=== PATIENT | male | born 1970 | race Caucasian/White ===

== ENCOUNTER 2017-11-19 13:48 | Emergency (ER) | payer BC, OTHER ==
[2017-11-19] MEDS ORDERED: KETOROLAC TROMETHAMINE INJ 30 MG/ML VIAL IM ONE (14:07)
[2017-11-19] MEDS ORDERED: HYDROcodone 10MG/APAP 325MG 1 EA TAB PO ONE (14:07)
[2017-11-19 14:14] VITALS: TEMP 97.4
--- NOTE | 2017-11-19 14:30 | RAD ---
One view abdomen. Indication: left inguinal and flank pain 6 hrs Comparison: None. Impression: Scattered calcified phleboliths within the pelvis. Bowel gas pattern nonspecific. No abnormal calcifications. No acute osseous abnormality. Electronically signed by: Gus Velasquez MD 11/19/2017 2:28 PM CDT
[2017-11-19] MEDS ORDERED: TAMSULOSIN 0.4 MG CAP PO ONE (14:46)
[2017-11-19] MEDS ORDERED: SODIUM CHLORIDE 0.9% 1000ML 1,000 ML IVS ONE (14:46)
[2017-11-19 15:25] VITALS: O2SAT 99
--- NOTE | 2017-11-19 15:36 | ED.PDOC ---
History of Present Illness - General Chief Complaint: Abdominal Pain Stated Complaint: Abdominal and low back discomfort Time Seen by Provider: 11/19/17 14:01 Source: patient Exam Limitations: no limitations - History of Present Illness Initial Comments: the patient is a 47-year-old male presenting to the emergency room secondary to left inguinal and testicular pain that started to radiate up towards his left flank. Symptoms started about 8 AM this morning fairly abruptly. No la hematuria and no dysuria. He has had mild frequency. No fever. No history of any kidney stones. Pain does come in waves and at times is very severe. It has caused him some nausea but no vomiting. No syncope but it has made him near syncopal. Timing/Duration: 4-6 hours Severity: moderate Improving Factors: nothing Worsening Factors: nothing Associated Symptoms: nausea/vomiting Allergies/Adverse Reactions: Allergies NO KNOWN ALLERGY Allergy (Verified 11/19/17 14:01) Home Medications: Ambulatory Orders Qvlmtgikyabbd-Pajb-Skeblhuwwi [Fioricet] 1 ea PO Q8H PRN #21 tab 11/19/17 Tamsulosin HCl [Flomax] 0.4 mg PO DAILY #7 cap 11/19/17 Review of Systems - Review of Systems Constitutional: States: no symptoms reported EENTM: States: no symptoms reported Respiratory: States: no symptoms reported Cardiology: States: no symptoms reported Gastrointestinal/Abdominal: States: no symptoms reported Genitourinary: States: see HPI Musculoskeletal: States: see HPI, back pain Skin: States: no symptoms reported Neurological: States: no symptoms reported Endocrine: States: no symptoms reported All other Systems: No Change from Baseline Past Medical History (General) - Patient Medical History Hx Stroke: No Hx Congestive Heart Failure: No Hx Diabetes: No Surgical History: appendectomy Family Medical History - Family History Mother Hx Family Hypertension: Yes Physical Exam - Physical Exam General Appearance: Alert Eye Exam: bilateral normal Ears, Nose, Throat: hearing grossly normal, normal ENT inspection, normal pharynx Neck: full range of motion, supple Respiratory: lungs clear, normal breath sounds, no respiratory distress, no accessory muscle use Cardiovascular/Chest: normal peripheral pulses, no edema, other - egular rate Peripheral Pulses: radial,right: 2+, radial,left: 2+, dorsalis pedis,right: 2+, dorsalis pedis,left: 2+ Gastrointestinal/Abdominal: non tender, soft Rectal Exam: deferred Back Exam: no CVA tenderness, no vertebral tenderness Extremity: normal range of motion, non-tender, normal inspection, no pedal edema , normal capillary refill Neurologic: local operator II-XII nml as tested, alert, normal mood/affect, oriented x 3 Skin Exam: normal color Comments: Vital Signs - 24 hr 11/19/17 11/19/17 14:02 15:03 Temperature 97.4 F L Pulse Rate [ 60 left brachial] Respiratory 18 16 Rate Blood Pressure 159/85 126/74 [left brachial] O2 Sat by Pulse 100 99 Oximetry Progress - Progress Progress: 11/19/17 15:36 the patient is a 47-year-old male presenting to the emergency room with what appears to be pain due to a left ureteral lithiasis, ased upon symptoms and hematuria. The patient has received some pain medications and IV fluids and is doing much better. KUB failed to show any stone along the path of the ureter, indicating that he has either passed into the ureter or is likely very small. The patient will be allowed to go home and will receive prescriptions for Flomax and Fioricet for as needed use. He needs to keep himself well-hydrated and move around a good bit. If he is still not passed a stone or still having significant discomfort in 3-5 days then he may need reevaluation. Renal function is within normal limits at this time. CT scan is not indicated at this time. No evidence of infection in the urine otherwise. he should follow up with his primary care doctor early next week for reevaluation. ER warnings were given. - Results/Orders Results/Orders: KUB shows no evidence of any stone along the lines of the ureter. He does have phleboliths. Laboratory Tests 11/19/17 11/19/17 11/19/17 14:00 15:00 15:00 WBC 6.3 RBC 4.59 L Hgb 14.1 Hct 40.8 L MCV 88.9 MCH 30.7 MCHC 34.5 RDW 12.8 Plt Count 277 MPV 8.1 Absolute Neuts (auto) 3.70 Absolute Lymphs (auto) 1.80 Absolute Monos (auto) 0.40 Absolute Eos (auto) 0.30 Absolute Basos (auto) 0.00 Neutrophils % 59.2 Lymphocytes % 28.7 Monocytes % 6.7 Eosinophils % 4.7 Basophils % 0.7 Sodium 140 Potassium 3.8 Chloride 106 Carbon Dioxide 28 Anion Gap 9.8 L BUN 16 Creatinine 1.23 BUN/Creatinine Ratio 13.0 Random Glucose 93 Serum Osmolality 280.3 Calcium 9.1 Total Bilirubin 0.7 AST 28 ALT 24 Alkaline Phosphatase 77 Serum Total Protein 7.2 Albumin 4.3 Globulin 2.9 Albumin/Globulin Ratio 1.5 Urine Color Dk yellow Urine Appearance Cloudy Urine pH 7.0 Ur Specific [place] 1.025 Urine Protein Trace Urine Glucose (UA) Negative Urine Ketones Negative Urine Blood Large H Urine Nitrite Negative Urine Bilirubin Negative Urine Urobilinogen 1.0 Ur Leukocyte Esterase Negative Urine RBC >50 H Urine WBC 0-1 Ur Epithelial Cells 0-1 Urine Bacteria 0 Departure - Departure Clinical Impression: Ureterolithiasis Disposition: Discharge to Home or Self Care Condition: Fair Departure Forms: ED Discharge - Pt. Copy, Patient Portal Self Enrollment Instructions: DI for Kidney Stones Diet: regular diet Activity: increase activity as tolerated Referrals: RAÚL ARGUETA IV, [facility] [Primary Care Provider] - 1-5 Days Prescriptions: Rkesyznbqrwbl-Jlzd-Aeigitimfg [Fioricet] 1 ea PO Q8H PRN #21 tab PRN Reason: Pain Tamsulosin HCl [Flomax] 0.4 mg PO DAILY #7 cap Home Medications: Ambulatory Orders Ohgcwzzlcdbcq-Rohr-Gpuacdtoel [Fioricet] 1 ea PO Q8H PRN #21 tab 11/19/17 Tamsulosin HCl [Flomax] 0.4 mg PO DAILY #7 cap 11/19/17 Additional Instructions: the patient is a 47-year-old male presenting to the emergency room with what appears to be pain due to a left ureteral lithiasis, ased upon symptoms and hematuria. The patient has received some pain medications and IV fluids and is doing much better. KUB failed to show any stone along the path of the ureter, indicating that he has either passed into the ureter or is likely very small. The patient will be allowed to go home and will receive prescriptions for Flomax and Fioricet for as needed use. He needs to keep himself well-hydrated and move around a good bit. If he is still not passed a stone or still having significant discomfort in 3-5 days then he may need reevaluation. Renal function is within normal limits at this time. CT scan is not indicated at this time. No evidence of infection in the urine otherwise. he should follow up with his primary care doctor early next week for reevaluation. ER warnings were given.
[2017-11-19 16:18] VITALS: BP 124/73
== END 2017-11-19 16:14 | disposition home or self-care (01) ==
LOC: ER 13:48
DX: N20.1 Calculus of ureter (principal); R11.0 Nausea
CPT/HCPCS: 36415; 74018; 80053; 81001; 85025; J1885; J7030

== ENCOUNTER 2017-11-24 04:28 | Emergency (ER) | payer BC ==
[2017-11-24 04:39] VITALS: TEMP 98.1; O2SAT 100
[2017-11-24] MEDS ORDERED: ONDANSETRON INJ 4 MG/2 ML VIAL IV ONE (04:45)
[2017-11-24] MEDS ORDERED: KETOROLAC TROMETHAMINE INJ 30 MG/ML VIAL IV ONE (04:46)
[2017-11-24] MEDS ORDERED: HYDROmorphone HCL INJ 2 MG/ML VIAL IV ONE ×3 (04:46→06:22)
--- NOTE | 2017-11-24 05:03 | ED.PDOC ---
History of Present Illness - General Chief Complaint: Problem Stated Complaint: flank/groin pain, hx kidney stone Time Seen by Provider: 11/24/17 04:44 Source: patient, RN notes reviewed, Vital Signs reviewed Exam Limitations: no limitations Additional Information: states he was here about 5 days ago & diagnosed with a kidney stone. eventually he became pain free until a couple of hours ago. feels the same as the previous visit. - History of Present Illness Timing/Duration: 1-3 hours Severity: severe Improving Factors: nothing Worsening Factors: nothing Associated Symptoms: nausea/vomiting Allergies/Adverse Reactions: Allergies NO KNOWN ALLERGY Allergy (Verified 11/24/17 04:40) Home Medications: Ambulatory Orders Yxoetjqjekawg-Eqlu-Ohqycnmpoc [Fioricet] 1 ea PO Q8H PRN #21 tab 11/19/17 Tamsulosin HCl [Flomax] 0.4 mg PO DAILY #7 cap 11/19/17 Acetaminophen W/ Codeine [Tylenol W/ CODEINE #3] 2 ea PO Q4HR PRN #14 11/24/17 Review of Systems - Review of Systems Constitutional: States: no symptoms reported Respiratory: States: no symptoms reported Cardiology: States: no symptoms reported Gastrointestinal/Abdominal: States: see HPI, abdominal pain - left flank pain Genitourinary: Denies: discharge, dysuria, frequency, hematuria Musculoskeletal: States: back pain Neurological: States: no symptoms reported Past Medical History (General) - Patient Medical History Hx Seizures: No Hx Stroke: No Hx Dementia: No Hx Asthma: No Hx of COPD: No Hx Cardiac Disorders: No Hx Congestive Heart Failure: No Hx Pacemaker: No Hx Hypertension: No Hx Thyroid Disease: No Hx Diabetes: No Hx Gastroesophageal Reflux: No Hx Renal Disease: No Hx Cancer: No Hx of HIV: No Hx Hepatitis C: No Hx MRSA: No Surgical History: appendectomy Family Medical History - Family History Mother Hx Family Hypertension: Yes Physical Exam - Physical Exam General Appearance: Alert, Anxious, Obvious distress, Restless Neck: full range of motion, supple Respiratory: no respiratory distress Gastrointestinal/Abdominal: non tender, soft, no pulsatile mass Back Exam: CVA tenderness (L) Extremity: normal range of motion Neurologic: no motor/sensory deficits, alert, oriented x 3 Skin Exam: normal color, warm/dry Progress - Progress Progress: 11/24/17 05:07 Pain is a "6" from a 10. 11/24/17 06:23 pain was basically gone now starting to return. - EKG/XRAY/CT CT: 2 mm stone at left UVJ with mild hydroureter & hydronephrosis Departure - Departure Clinical Impression: Ureterolithiasis Time of Disposition: 06:29 Disposition: Discharge to Home or Self Care Condition: Fair Departure Forms: ED Discharge - Pt. Copy, Patient Portal Self Enrollment Instructions: DI for Kidney Stones Referrals: RAÚL ARGUETA IV, [employer] [Primary Care Provider] - 1-2 Days Prescriptions: Acetaminophen W/ Codeine [Tylenol W/ CODEINE #3] 2 ea PO Q4HR PRN #14 PRN Reason: Moderate To Severe Pain Home Medications: Ambulatory Orders Hmipmfxzdvaea-Icet-Rfbkvlzugn [Fioricet] 1 ea PO Q8H PRN #21 tab 11/19/17 Tamsulosin HCl [Flomax] 0.4 mg PO DAILY #7 cap 11/19/17 Acetaminophen W/ Codeine [Tylenol W/ CODEINE #3] 2 ea PO Q4HR PRN #14 11/24/17
--- NOTE | 2017-11-24 05:28 | CT ---
EXAM DESCRIPTION: CT ABDOMEN AND PELVIS WITHOUT CONTRAST CLINICAL HISTORY: right flank pain - suspected kidney stone COMPARISON: None Available. TECHNIQUE: CT of the abdomen and pelvis without IV contrast. Evaluation of the solid organs and vasculature is suboptimal due to lack of IV contrast. DLP: 1167.12 mGy-cm FINDINGS: Lung Bases: The visualized lung bases are clear. Bones: No destructive bone lesions identified. Abdomen: Liver: The liver has normal size and density. Gallbladder: No calcified gallstones. Spleen, Pancreas, and Adrenal Glands: The spleen, pancreas, and adrenal glands are unremarkable. Kidneys: Punctate bilateral nonobstructing renal calculi. 2 mm second calculus at the left UVJ producing mild left hydroureter and hydronephrosis. Vasculature: The aorta and IVC have normal caliber and position. Stomach: The stomach and duodenum have normal course. Other: No free intraperitoneal air. No free fluid or lymphadenopathy. Pelvis: Bladder: Urinary bladder is unremarkable. Bowel: No dilated loops of large or small bowel. Appendix: No evidence of appendicitis. Pelvis: Prostate is not enlarged. IMPRESSION: 1. There is a 0.2 cm obstructing calculus at the left UVJ producing mild left hydroureter and hydronephrosis. 2. Punctate bilateral nonobstructing renal calculi. This exam was performed according to our departmental dose-optimization program, which includes automated exposure control, adjustment of the mA and/or kV according to patient size and/or use of iterative reconstruction technique. Electronically signed by: Magdi Huizar 11/24/2017 5:27 AM CDT
[2017-11-24 06:44] VITALS: BP 103/63
== END 2017-11-24 07:45 | disposition home or self-care (01) ==
LOC: ER 04:28
DX: N13.2 Hydronephrosis with renal and ureteral calculous obstruction (principal)
CPT/HCPCS: 74176; J1170; J1885; J2405

== ENCOUNTER 2019-02-05 08:15 | Emergency (ER) | payer BC ==
--- NOTE | 2019-02-05 08:33 | ED.PDOC ---
History of Present Illness - General Chief Complaint: Syncope/Near Syncope Stated Complaint: syncope Time Seen by Provider: 02/05/19 08:33 Source: family - , EMS Exam Limitations: no limitations - History of Present Illness Initial Comments: clovis Buckner 48 y/o male stated that while he was having blood draw at the [facility] today she had onset of passing out for few seconds followed by generalized shaking of his torso and extremities but no incontinence of urine or stool.EMS was then called and he was given OJ when he was fully awake and EMS took [id number].He was then brought here,On his arrival he was alert able to answer all questions,stated had same thing happened to him when he had blood draw in the past but no generalized shakiness.Denieschronic medical problems no medication currently being taken. Timing/Prior Episodes: remote history Precipitating Factors: other - blood draw Context: sitting Episode Description: see hpi Loss of Consciousness: brief (seconds) Current Symptoms: back to normal Allergies/Adverse Reactions: Allergies NO KNOWN ALLERGY Allergy (Verified 02/05/19 08:46) Review of Systems - Review of Systems Constitutional: States: no symptoms reported EENTM: States: no symptoms reported Respiratory: States: no symptoms reported Cardiology: States: no symptoms reported Gastrointestinal/Abdominal: States: no symptoms reported Genitourinary: States: no symptoms reported Skin: States: no symptoms reported Neurological: States: no symptoms reported Endocrine: States: no symptoms reported All other Systems: Reviewed and Negative Past Medical History (General) - Patient Medical History Hx Seizures: No Hx Stroke: No Hx Dementia: No Hx Asthma: No Hx of COPD: No Hx Cardiac Disorders: Yes - dad Hx Congestive Heart Failure: No Hx Pacemaker: No Hx Hypertension: No Hx Thyroid Disease: No Hx Diabetes: No Hx Gastroesophageal Reflux: No Hx Renal Disease: No Hx Cancer: No Hx of HIV: No Hx Hepatitis C: No Hx MRSA: No Surgical History: appendectomy Physical Exam - Physical Exam General Appearance: Alert, Comfortable Eyes, Ears, Nose, Throat Exam: PERRL/EOMI, normal ENT inspection, TMs normal, pharynx normal Neck: non-tender, full range of motion, supple, normal inspection Cardiovascular/Respiratory: regular rate, rhythm, no M/R/G, normal peripheral pulses, normal breath sounds, no respiratory distress Gastrointestinal/Abdominal: normal bowel sounds, non tender, soft, no organomegaly Back Exam: no CVA tenderness, no vertebral tenderness Extremity: no pedal edema, no calf tenderness Mental 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, 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 Exam: normal hearing, normal speech, PERRL Coordination/Gait: normal gait, negative Romberg's sign Motor/Sensory: no motor deficit, no sensory deficit, no pronator drift Skin Exam: normal color, warm/dry Progress - Progress Progress: 02/05/19 09:03 Vital Signs - 8 hr 02/05/19 02/05/19 02/05/19 08:30 08:33 08:35 Temperature 96.4 F L Pulse Rate [L 47 L 47 L finger] Respiratory 16 16 Rate Blood Pressure 118/64 99/76 [L brachial] O2 Sat by Pulse 99 Oximetry - Results/Orders Results/Orders: 02/05/19 08:33 URINE DRUG SCREEN, 7 ASSAY Stat 02/05/19 08:45 EKG STAT 02/05/19 08:50 VITAMIN B12 Routine Laboratory Results - last 24 hr 02/05/19 02/05/19 08:50 09:15 WBC 4.5 L RBC 4.84 Hgb 14.8 Hct 42.7 MCV 88.3 MCH 30.5 MCHC 34.6 RDW 12.8 Plt Count 285 MPV 7.7 Absolute Neuts (auto) 1.30 L Absolute Lymphs (auto) 2.30 Absolute Monos (auto) 0.70 Absolute Eos (auto) 0.30 Absolute Basos (auto) 0.00 Neutrophils % 27.8 L Lymphocytes % 50.5 H Monocytes % 15.1 H Eosinophils % 6.0 H Basophils % 0.6 PT 10.4 INR 1.04 PTT (SP) 22.7 Sodium 140 Potassium 3.8 Chloride 104 Carbon Dioxide 25 Anion Gap 14.8 BUN 17 Creatinine 1.18 BUN/Creatinine Ratio 14.4 Random Glucose 108 H Serum Osmolality 281.5 Calcium 9.4 Magnesium 2.0 Total Bilirubin 1.0 Direct Bilirubin < 0.1 Indirect Bilirubin 0.9 H AST 25 ALT 27 Alkaline Phosphatase 72 Creatine Kinase 63 CK-MB (CK-2) 1.3 CK-MB (CK-2) % Not Reportable Troponin I < 0.02 Serum Total Protein 7.5 Albumin 4.1 Amylase 69 Lipase 32 TSH 4.83 Urine Color Yellow Urine Appearance Clear Urine pH 6.5 Ur Specific [place] 1.020 Urine Protein 30 Urine Glucose (UA) Negative Urine Ketones Negative Urine Blood Trace-intact H Urine Nitrite Negative Urine Bilirubin Negative Urine Urobilinogen 0.2 Ur Leukocyte Esterase Negative Urine RBC 0 Urine WBC 0 Ur Epithelial Cells 1-3 Urine Bacteria 0 Discuss all test results with patient - EKG/XRAY/CT EKG: Morgan, Sinus, no ST T wave changes Comments: HR-46 XRAY: chest - no acute changes Departure - Departure Clinical Impression: Syncope Qualifiers: Syncope type: unspecified Qualified Code(s): R55 - Syncope and collapse Time of Disposition: 10:00 Disposition: Discharge to Home or Self Care Condition: Good Departure Forms: ED Discharge - Pt. Copy, Patient Portal Self Enrollment Instructions: DI for Syncope in Adults (Fainting) Referrals: Oli Thomas MD [Physicians] - 1-2 Weeks Additional Instructions: RETURN TO Emergency room as needed;Follow up with primary MD 08 February 2019 for recheck
--- NOTE | 2019-02-05 09:44 | RAD ---
EXAM: XR Chest, 1 View CLINICAL HISTORY: 48 years old and is Male; syncope TECHNIQUE: Frontal view of the chest. COMPARISON: No relevant prior studies available. FINDINGS: Limitations: None. Lungs: Unremarkable. No consolidation. Pleural space: Unremarkable. No pneumothorax. Heart: Unremarkable. No cardiomegaly. Mediastinum: Unremarkable. Bones/joints: Unremarkable. IMPRESSION: No acute findings. Electronically signed by: Jolene Ross MD 02/05/2019 9:42 AM CDT
[2019-02-05 10:18] VITALS: BP 109/67; TEMP 97.6; O2SAT 96
== END 2019-02-05 10:11 | disposition home or self-care (01) ==
LOC: ER 08:15
DX: R55 Syncope and collapse (principal); R00.1 Bradycardia, unspecified

== ENCOUNTER 2020-01-21 04:34 | Emergency (ER) | payer BC ==
[2020-01-21] MEDS ORDERED: KETOROLAC TROMETHAMINE INJ 30 MG/ML VIAL IV ONE (04:47)
[2020-01-21] MEDS ORDERED: MORPHINE SULFATE INJ 10 MG/ML VIAL IV ONE ×2 (04:57→05:40)
[2020-01-21] MEDS ORDERED: PROMETHAZINE HCL INJ 25 MG in SODIUM CHLORIDE 0.9% 50ML 50 ML IVPB ONE (04:57)
[2020-01-21] MEDS ORDERED: SODIUM CHLORIDE 0.9% 1000ML 1,000 ML IVS ONE ×2 (04:57→05:41)
[2020-01-21] MEDS ORDERED: TAMSULOSIN 0.4 MG CAP PO ONE (04:58)
--- NOTE | 2020-01-21 05:00 | ED.PDOC ---
History of Present Illness - General Chief Complaint: Abdominal Pain Stated Complaint: I think I have a kidney stone Time Seen by Provider: 01/21/20 04:51 Source: patient Exam Limitations: no limitations - History of Present Illness Initial Comments: The patient is a 49-year-old male presented emergency room secondary to right flank pain radiating around to the front down to his testicular and penile area. It is causing a sensation of the need to urinate. The patient has had a kidney stone in the past and feels like this. Pain is quite severe at times it does occasionally cause nausea. The patient is having a difficult time remaining still. He is mildly diaphoretic. No pain on the left. No abdominal pain to palpation. Pain started around 330 this morning but patient does report some mild vague flank discomfort yesterday afternoon as well. He denies any constipation. No syncope. Pain is rated at 9 out of 10 currently. Timing/Duration: unsure Severity: severe Improving Factors: nothing Worsening Factors: nothing Associated Symptoms: diaphoresis, loss of appetite, malaise, nausea/vomiting Allergies/Adverse Reactions: Allergies NO KNOWN ALLERGY Allergy (Verified 02/05/19 08:46) Home Medications: Ambulatory Orders Tamsulosin HCl [Flomax] 0.4 mg PO DAILY #7 cap 01/21/20 Review of Systems - Review of Systems Constitutional: States: malaise EENTM: States: no symptoms reported Respiratory: States: no symptoms reported Cardiology: States: no symptoms reported Gastrointestinal/Abdominal: States: abdominal pain, nausea Genitourinary: States: frequency Musculoskeletal: States: back pain Skin: States: see HPI Neurological: States: no symptoms reported Endocrine: States: excessive sweating Hematologic/Lymphatic: States: no symptoms reported All other Systems: No Change from Baseline Past Medical History (General) - Patient Medical History Hx Seizures: No Hx Stroke: No Hx Dementia: No Hx Asthma: No Hx of COPD: No Hx Cardiac Disorders: No Hx Congestive Heart Failure: No Hx Pacemaker: No Hx Hypertension: No Hx Thyroid Disease: No Hx Diabetes: No Hx Gastroesophageal Reflux: No Hx Renal Disease: No Hx Cancer: No Hx of HIV: No Hx Hepatitis C: No Hx MRSA: No Surgical History: no surgical history - Vaccination History Hx Tetanus, Diphtheria Vaccination: No Hx Influenza Vaccination: No Hx Pneumococcal Vaccination: No - Social History Hx Tobacco Use: No Hx Alcohol Use: No Hx Substance Use: No Hx Substance Use Treatment: No Hx Depression: No - Female History Patient is a Female of Child Bearing Age (10 -59 yrs old): No Patient : No Family Medical History - Family History Mother Living Status: Still Living Hx Family Hypertension: Yes Father Living Status: Still Living Hx Cardiac Disease: Yes Physical Exam - Physical Exam General Appearance: Alert, Obvious distress, Ill Appearing Eye Exam: bilateral normal Ears, Nose, Throat: hearing grossly normal, normal pharynx Neck: full range of motion, supple Respiratory: lungs clear, normal breath sounds, no respiratory distress, no accessory muscle use Cardiovascular/Chest: normal peripheral pulses, regular rate, rhythm, no edema Peripheral Pulses: radial,right: 2+, radial,left: 2+ Gastrointestinal/Abdominal: non tender, soft, other - No rebound or peritoneal signs. No palpable masses. No guarding. No evidence of trauma. Rectal Exam: deferred Back Exam: no vertebral tenderness, CVA tenderness (R) Extremity: normal range of motion, normal inspection, no pedal edema, normal capillary refill Neurologic: twisthand II-XII nml as tested, alert, normal mood/affect, oriented x 3 Skin Exam: diaphoresis Comments: Vital Signs - 24 hr 01/21/20 04:48 Temperature 97.8 F Pulse Rate [ 64 monitor] Respiratory 21 Rate Blood Pressure 137/83 [Left Arm] O2 Sat by Pulse 100 Oximetry Progress - Progress Progress: 01/21/20 06:49 The patient is a 49-year-old male presented emergency room secondary to severe right flank pain. The patient passed a 3 mm kidney stone based on the work-up here today. The patient needs to keep himself well-hydrated as he did have some mild acute renal failure related to that. He did receive 2 L of IV fluid. Additionally the patient does have some hypokalemia and did receive a dose here today. He needs to have this rechecked with his primary care doctor and 2 to 3 weeks. He can take Aleve 2 tablets twice daily for the next few days to help reduce ureteral spasm that may be residual. He will be written for Flomax for the next week as well to help reduce spasm. He is to keep himself well-hydrated in the long run to reduce kidney stone formation and future problems. ER warnings are given for any significant worsening. [email or web address] gilbert [id number] - Results/Orders Results/Orders: EKG shows mild sinus bradycardia 56 bpm. Normal axis. Normal R wave progression. Mild peaking of the T waves in lateral leads. No definitive ST segment or T wave changes otherwise indicative of acute ischemia. Laboratory Tests 01/21/20 01/21/20 01/21/20 04:42 04:42 04:45 WBC 10.2 RBC 5.15 Hgb 15.8 Hct 45.6 MCV 88.6 MCH 30.8 MCHC 34.8 RDW 12.8 Plt Count 326 MPV 8.5 Absolute Neuts (auto) 3.70 Absolute Lymphs (auto) 5.10 H Absolute Monos (auto) 0.80 Absolute Eos (auto) 0.40 Absolute Basos (auto) 0.10 Neutrophils % 36.9 L Lymphocytes % 50.5 H Monocytes % 7.8 Eosinophils % 4.2 Basophils % 0.6 Sodium 138 Potassium 3.2 L Chloride 102 Carbon Dioxide 26 Anion Gap 13.2 BUN 20 H Creatinine 1.48 H BUN/Creatinine Ratio 13.5 Random Glucose 114 H Serum Osmolality 279.2 Calcium 9.3 Magnesium 2.4 Total Bilirubin 1.0 AST 39 ALT 29 Alkaline Phosphatase 90 Creatine Kinase 88 CK-MB (CK-2) 2.0 CK-MB (CK-2) % Not Reportable Troponin I < 0.02 Serum Total Protein 7.9 Albumin 4.5 Globulin 3.4 Albumin/Globulin Ratio 1.3 Urine Color Yellow Urine Appearance Clear Urine pH 5.5 Ur Specific Page >= 1.030 Urine Protein 30 Urine Glucose (UA) Negative Urine Ketones Negative Urine Blood Large H Urine Nitrite Negative Urine Bilirubin Small H Urine Urobilinogen 0.2 Ur Leukocyte Esterase Negative Urine RBC >50 H Urine WBC 1-3 Ur Epithelial Cells 0-[address] scan of abdomen pelvis without contrast shows a mildly dilated right-sided ureter and mild hydronephrosis with a 3 mm stone at the junction of the bladder and the ureter, indicating a likely recently passed stone. Departure - Departure Clinical Impression: Calcium ureterolithiasis, Dehydration, Hypokalemia Acute renal failure Qualifiers: Acute renal failure type: unspecified Qualified Code(s): N17.9 - Acute kidney failure, unspecified Disposition: Discharge to Home or Self Care Condition: Fair Departure Forms: ED Discharge - Pt. Copy, Patient Portal Self Enrollment Instructions: Kidney Stones (DC) Diet: regular diet Activity: increase activity as tolerated Referrals: ALFREDO MORALEZ [Primary Care Provider] - 1-2 Weeks Prescriptions: Tamsulosin HCl [Flomax] 0.4 mg PO DAILY #7 cap Home Medications: Ambulatory Orders Tamsulosin HCl [Flomax] 0.4 mg PO DAILY #7 cap 01/21/20 Additional Instructions: The patient is a 49-year-old male presented emergency room secondary to severe right flank pain. The patient passed a 3 mm kidney stone based on the work-up here today. The patient needs to keep himself well-hydrated as he did have some mild acute renal failure related to that. He did receive 2 L of IV fluid. Additionally the patient does have some hypokalemia and did receive a dose here today. He needs to have this rechecked with his primary care doctor and 2 to 3 weeks. He can take Aleve 2 tablets twice daily for the next few days to help reduce ureteral spasm that may be residual. He will be written for Flomax for the next week as well to help reduce spasm. He is to keep himself well-hydrated in the long run to reduce kidney stone formation and future problems. ER warnings are given for any significant worsening.
[2020-01-21] MEDS ORDERED: POTASSIUM CHLORIDE ELIXIR 20 MEQ/15 ML UD PO ONE (05:42)
--- NOTE | 2020-01-21 06:36 | CT ---
CT ABDOMEN AND PELVIS WITHOUT CONTRAST CLINICAL HISTORY: rt flank pain COMPARISON: CT abdomen and pelvis 11/24/2017 TECHNIQUE: Axial unenhanced CT imaging of the abdomen and pelvis performed. Reformatted coronal and sagittal images reviewed. A dose reduction technique was utilized with automated exposure control according to patient size. FINDINGS: Mild bilateral lower lobe subpleural atelectasis. Heart is normal in size. Normal liver and gallbladder. Normal spleen and pancreas. Normal adrenal glands. There are nonobstructing punctate bilateral renal stones. Largest is 3 mm and right renal pelvis. Mild fullness of the right renal pelvis. AP pelvis is 1.1 cm. There is a 3 mm calculus in the region of the right deep ureterovesical junction versus dependent gallbladder lumen. There is a posterior right renal 1.5 cm cyst. Normal aorta and inferior vena cava caliber. No adenopathy. Small hiatal hernia. Normal stomach and small bowel loops. Appendix is nonvisualized. Mild proximal sigmoid colon diverticulosis. No diverticulitis. No ascites or free air. No mesenteric adenopathy. Bladder is not fully distended. No perivesicle edema. 3 mm calculus along the right posterior bladder wall. Normal prostate. No pelvic free fluid. Normal lumbar lordosis. No subluxation. Intact bony pelvis. Normal hips. IMPRESSION: 1. Mild right hydronephrosis secondary to a 3 mm calculus along the right posterior bladder which may represent a deep ureterovesical junction stone versus recently passed bladder stone. 2. Nonobstructing bilateral renal pelvic stones up to 3 mm. 3. Posterior right renal cyst. 4. Very mild proximal sigmoid colon diverticulosis without diverticulitis. Electronically signed by: Rukhsana Connor DO 01/21/2020 6:35 AM CDT
[2020-01-21 07:31] VITALS: BP 105/61; TEMP 97.2; O2SAT 95
== END 2020-01-21 07:30 | disposition home or self-care (01) ==
LOC: ER 04:34
DX: N20.1 Calculus of ureter (principal); E86.0 Dehydration; E87.6 Hypokalemia; N17.9 Acute kidney failure, unspecified; Z87.442 Personal history of urinary calculi
CPT/HCPCS: 74176; 80053; 81001; 82550; 82553; 83735; 84484; 85025; 93005; A4216; J1885; J2270; J2550; J7030

== ENCOUNTER → 2020-04-04 | Outpatient (CLI) | payer BC | LOC: GMA MATASK 10:32 | PROVIDERS: ATTEND Family Medicine | DX: R07.2 Precordial pain (principal); Z13.6 Encounter for screening for cardiovascular disorders ==